=== PATIENT | female | born 1945 | race Caucasian/White ===

== ENCOUNTER 2016-08-19 23:29 | Observation (INO) | payer MEDICARE ==
[~2016-08-19] VITALS: Ht 152.4 cm; Wt 47.0 kg
[~2016-08-19 23:29] MED LIST: BACTRIM DS1 TAB PO; BENADRYL 50MG C50 MG PO; FLUARIX QUADRIV1 IN1 IM; HYDROCORTISO2.51 EX
[2016-08-20 00:48] LABS: HEMATOCRIT 38.3 % (37.0-47.0); HEMOGLOBIN 13.4 g/dl (12.0-16.0); IMMATURE GRANULOCYTES 0.4 % (0.0-1.0); MEAN CELL VOLUME 86.5 fL CALC (80.0-100.0); MEAN CORPUSCULAR HGB 30.2 pG CALC (26.0-32.0); NEUT# 15.9 thou/uL (2.00-7.15); RED BLOOD COUNT 4.43 mill/uL (4.20-5.60); RED CELL DISTRI WIDTH 12.3 % (11.5-15.5)
[2016-08-20 01:13] LABS: ALBUMIN 4.6 g/dL (3.2-5.0); ALKALINE PHOSPHATASE 91 u/l (38-126); AMYLASE 76 u/l (30-110); ANION GAP 17 (6-22 (CALC)); BILIRUBIN, TOTAL 0.7 mg/dL (0.0-1.4); BUN 21 mg/dL (8-23); BUN/CREATININE RATIO 35 (12-20 (CALC)); CALCIUM 10.5 mg/dL (8.4-10.2); CARBON DIOXIDE 25 mmol/l (22-30); CHLORIDE 106 mmol/l (95-108); CREATININE 0.6 mg/dL (0.5-1.0); GFR > 60 ML/MIN (>=60 (CALC)); GFR FOR AFR.AMER. > 60 ML/MIN (>=60 (CALC)); GLUCOSE 136 mg/dL (82-115); LIPASE 144 u/l (23-300); POTASSIUM 3.9 mmol/l (3.5-5.1); SGOT/AST 23 u/l (9-36); SGPT/ALT 24 u/l (11-66); SODIUM 144 mmol/l (137-146); TOTAL PROTEIN 7.8 g/dL (6.3-8.2)
[2016-08-20 04:38] VITALS: BP 163/68
[2016-08-20 09:22] VITALS: BP 106/67
== END 2016-08-20 11:50 | disposition left against medical advice (07) ==
LOC: ED 23:29 → ED-I 08-20 03:00 → ED 08-20 03:15 → MS2 08-20 03:16
PROVIDERS: Emergency Medicine; ADMIT Surgery; ATTEND Surgery
PROC: 0D9670Z Drainage of Stomach with Drainage Device, Via Natural or Artificial Opening (ICD-10-PCS; principal; 2016-08-20)
PROC: 0D9670Z Drainage of Stomach with Drainage Device, Via Natural or Artificial Opening (ICD-10-PCS; 2016-08-20)
DX: K56.60 Unspecified intestinal obstruction (principal)
CPT/HCPCS: Q9967

== ENCOUNTER 2016-12-21 16:35 | Emergency (ER) | payer MEDICARE ==
[~2016-12-21] VITALS: Ht 152.4 cm; Wt 50.0 kg
[2016-12-21] MEDS ORDERED: BACTRIM DS1 TAB PO (17:17)
[2016-12-21] MEDS ORDERED: CEPHALEXIN500 M1 PO (17:17)
[2016-12-21] MEDS ORDERED: MOTRIN400 MG PO (17:17)
[2016-12-21 17:45] VITALS: BP 130/63
== END 2016-12-21 17:45 | disposition home or self-care (01) ==
LOC: ED 16:35
DX: L03.012 Cellulitis of left finger (principal)
CPT/HCPCS: J1335